=== PATIENT | female | born 1995 | race Hispanic/Latino ===

== ENCOUNTER 2018-07-13 18:20 | Emergency (ER) | payer BC ==
[~2018-07-13] VITALS: Ht 152.4 cm; Wt 50.3 kg
[2018-07-13] MEDS ORDERED: HYOSCYAMINE 0.125 MG TAB PO ONE (19:00)
[2018-07-13 19:35] LABS: BASOPHILS % 0.5 % (0.0-1.0); EOSINOPHILS # (AUTO) 0.1 (0.0-0.4); EOSINOPHILS % 1.8 % (0.0-6.0); HEMATOCRIT 37.7 % (34.2-44.1); HEMOGLOBIN 12.9 g/dL (12.0-16.0); LYMPHOCYTES % 33.8 % (18.0-39.1); MEAN CORPUSCULAR HEMOGLOBIN 31.3 pg (28-32); MEAN CORPUSCULAR HGB CONC 34.2 g/dL (31-35); MEAN CORPUSCULAR VOLUME 91.5 fL (81-99); MONOCYTES # (AUTO) 0.7 (0.2-0.8); MONOCYTES % 11.2 % (4.4-11.3); NEUTROPHILS # (AUTO) 3.1 (2.1-6.9); NEUTROPHILS % 52.5 % (38.7-80.0); PLATELET COUNT 225 x10e3/uL (140-360); RED BLOOD COUNT 4.12 x10e6/uL (3.6-5.1); RED CELL DISTRIBUTION WIDTH 12.2 % (11.7-14.4)
[2018-07-13 19:48] LABS: AMYLASE 121 U/L (25-125); ANION GAP 13.5 mmol/L (8-16); BLOOD UREA NITROGEN 8 mg/dL (7-26); BUN/CREATININE RATIO 11 (6-25); CALCIUM 9.7 mg/dL (8.4-10.2); CARBON DIOXIDE 26 mmol/L (22-29); CHLORIDE 102 mmol/L (98-107); CREATININE, SERUM 0.76 mg/dL (0.57-1.11); EST GLOMERULAR FILTRATION RATE > 60 ML/MIN (60-); GLUCOSE 102 mg/dL (74-118); LIPASE 129 U/L (8-78); POTASSIUM 3.5 mmol/L (3.5-5.1); SODIUM 138 mmol/L (136-145)
[2018-07-13] MEDS ORDERED: LEVSIN0.125 MG PO (20:06)
[2018-07-13 22:11] VITALS: BP 117/84
== END 2018-07-13 21:01 | disposition home or self-care (01) ==
LOC: ER 18:20
DX: R19.7 Diarrhea, unspecified (principal)
CPT/HCPCS: 36415; 80048; 82150; 83690; 84702; 85025; 87045; 99284